=== PATIENT | male | born 1960 | race Caucasian/White ===

== ENCOUNTER → 2024-05-30 06:21 | Day surgery (SDC) | payer BC, SELFPAY | LOC: GI 06:21 | PROVIDERS: ATTENDING PHYSICIAN Specialist | DX: Z12.11 Encounter for screening for malignant neoplasm of colon (principal); Z86.010 Personal history of colon polyps; D17.5 Benign lipomatous neoplasm of intra-abdominal organs; K63.5 Polyp of colon | CPT/HCPCS: 45380; 88305 ==

== ENCOUNTER 2025-10-06 12:51 | Inpatient (IN) | payer MEDICARE, OTHER, SELFPAY ==
[2025-10-06] VITALS (8 sets, daily range): BP systolic 119–157; BP diastolic 67–90; BMI 34.6
[2025-10-06 07:17] LABS: Albumin 4.4 g/dl (3.5-5.0); Carbon Dioxide 23 mmol/L (22-30)
[2025-10-06 07:27] LABS: ALT (SGPT) 52 U/L (0-50); AST (SGOT) 37 U/L (17-59); Alkaline Phosphatase 119 U/L (38-126); Blood Urea Nitrogen 11 mg/dl (9-20); Calcium 9.2 mg/dl (8.4-10.2); Chloride 91 mmol/L (98-107); Glucose 134 mg/dl (70-99); Potassium 4.0 mmol/L (3.5-5.1); Sodium 124 mmol/L (135-145); Total Protein 7.3 g/dl (6.3-8.2); eGFR > 60.00
[2025-10-06 07:28] LABS: COVID-19 Antigen Negative (Negative)
--- NOTE | 2025-10-06 07:34 | ED.GENMED ---
History of Present Illness
General
Chief Complaint: Cold/Flu/URI Symptoms
Time Seen by Provider: 10/06/25 07:34
History of Present Illness
History of Present Illness:
FOCUSED PAST MEDICAL HISTORY
- Prostate cancer, hiatal hernia
REVIEW OF OLD RECORDS
- Patient had colonoscopy in 2023
Note:
CHIEF COMPLAINT(S)
Lethargy, chills, anorexia, rash, and cough.
HISTORY OF PRESENT ILLNESS
The patient is a 65-year-old male who began experiencing symptoms on Sunday. Initially, he reported feeling lethargic with accompanying chills and a mild fever peaking at 100�F. By Sunday, he experienced significant insomnia and total anorexia,
noting, 'I cant eat any food. I havent eaten anything since.' On the day of presentation, the patient developed a rash characterized as 'dots all over' the body, which is non-pruritic and apparently absent the previous day. Notably, he has not had
any recent antibiotic use or new medications. Additionally, the patient reports experiencing cough since yesterday.
PAST MEDICAL AND SURGICAL HISTORY
The patient has had a recent history of cancer with a prostatectomy. The patient denies any metastatic disease.
REVIEW OF SYSTEMS
- Constitutional: Lethargy, fever, chills, anorexia, insomnia.
- Dermatological: Rash described as non-pruritic dots over the body.
- Gastrointestinal: Anorexia; abdomen tenderness reported over the last three days.
- Respiratory: Cough initiated yesterday.
PHYSICAL EXAM
General: Alert, no acute distress.
Skin: Warm, dry, nonpruritic macules with some urticaria primarily noted to the anterior and posterior aspect of the upper torso
Head: Normocephalic, atraumatic.
Neck: Supple, trachea midline.
Eyes, Ears, Nose, Throat: Oral mucosa moist.
Cardiovascular: Normal peripheral perfusion, No edema.
Respiratory: Respirations are non-labored; newly developed cough. Some scattered wheeze but overall fairly clear.
Gastrointestinal: Abdomen nondistended, no significant abdominal tenderness, periumbilical surgical scar along with small soft umbilical hernia
Back: Normal range of motion, Normal alignment.
Musculoskeletal: Normal range of motion, normal strength.
Neurological: Alert and oriented to person, place, time, and situation, No focal neurological deficit observed.
Psychiatric: Cooperative, appropriate mood & affect.
PLAN
- Order blood cultures and a lactic acid level.
- Administer intravenous fluids for hydration.
- Perform a chest X-ray to evaluate the newly developed cough.
- Review and await CBC results.
DIFFERENTIAL DIAGNOSIS
The Differential Diagnosis includes, in no particular order and is not limited to:
1. Viral syndrome
2. Drug reaction or allergy
3. Bacterial infection
4. Influenza despite negative initial test
5. COVID-19 despite negative initial test
6. Community-acquired pneumonia
7. Autoimmune rash
8. Stress or sleep deprivation-related syndromes
9. Malignancy-related symptoms
10. Gastrointestinal infection or discomfort
RADIOLOGY
- Chest x-ray shows left basilar pneumonia
LABS
- COVID and flu negative; CBC normal, sodium 124, normal platelets
SUMMARY OF ENCOUNTER
The patient, a 65-year-old male, presented to the emergency department with lethargy, chills, anorexia, rash, and cough. The lab tests indicated a notably low sodium level of 124 mEq/L, suggesting possible dehydration, potentially linked to
diarrhea. A chest x-ray revealed findings consistent with pneumonia. Given the patients symptoms, particularly the fast heart rate upon arrival, and the evidence of an infection, IV antibiotics were initiated for pneumonia management. Additionally,
IV fluids with saline were administered to address the low sodium levels and dehydration.
DISPOSITION
The decision was made to admit the patient for continued management and observation due to the pneumonia diagnosis, fast heart rate, and low sodium levels.
ASSESSMENT
The patient is experiencing pneumonia with contributing factors including possible dehydration and electrolyte imbalance as indicated by low sodium levels.
EMERGENCY TREATMENTS ADMINISTERED
Intravenous antibiotics were provided to treat pneumonia. Sodium chloride IV fluids were administered to address hyponatremia and dehydration.
PLAN
Continue intravenous antibiotics and saline fluids. Monitor vitals, particularly heart rate and sodium levels. Reassess for improvement of symptoms related to pneumonia and electrolyte balance.
INDEPENDENT REVIEW OF LABS AND INTERPRETATION OF TESTS
My independent review indicates hyponatremia with a sodium level of 124 mEq/L.
My independent interpretation of the chest x-ray shows signs of pneumonia.
MEDICAL DECISION MAKING
-Complexity of Data Reviewed: Chronic conditions affecting care include a history of cancer with a prostatectomy. Differential diagnosis considerations included viral syndrome, bacterial infection, community-acquired pneumonia, and gastrointestinal
infection.
-Data:
Category 1: Chest x-ray was independently interpreted, revealing pneumonia. Sodium levels were reviewed indicating hyponatremia.
-Risk: Consideration of Admission/Observation: Escalation of care including admission/observation was considered given the complexity and risk of the patients presenting complaint, exam findings, and underlying comorbidities. The decision for
admission was made to ensure safe management and close monitoring of pneumonia and hyponatremia.
DIAGNOSIS
Pneumonia (J18.9)
Hyponatremia (E87.1)
UPDATE
- Arrived tachycardic and sodium of 124 in the setting of diarrhea�gave IV fluids; 1+ ketonuria
- Chest x-ray shows pneumonia
- Non-pruritic rash of uncertain etiology; added blood cultures, lactic normal; normal platelets
Phy Exam
Physical Exam
Physical Exam:
See HPI
Sepsis
Sepsis Screening
Sepsis Assessment: Sepsis Ruled Out
Sepsis Screen
Sepsis Screen: Sepsis Ruled Out
Date: 10/06/25
Time: 09:28
Course
Orders/Labs/Results
Orders:
Orders
10/06/25 06:46
COVID-19 Antigen Urgent
Source: Nasal Swab
Influenza A+B Rapid Molecular Urgent
ARMANDO Source: Nasal Swab
Specimen Description:
10/06/25 06:49
Complete Blood Count/With Diff Urgent
Comprehensive Metabolic Panel Urgent
Serum Osmolality Urgent
Comment: ADD ON
10/06/25 07:40
0.9% Sodium Chloride 1000 ml [Nss] 1,000 ml IV BOLUS
CR Chest - 2 Views Urgent
Comment:
Reason For Exam: chills cough
10/06/25 07:41
Add On- LAB Urgent
Tests Added?: serum osm
10/06/25 08:08
Lactic Acid Q4H
Comment: CANCEL 2nd LACTIC ACID IF 1st LACTIC ACID IS LESS THAN 2
Urinalysis Reflex To Culture Urgent
Date Specimen was Collected: 10/06/25
Time Specimen was Collected: 07:42
Urine Microscopic Reflex Cult Urgent
Urine Sodium Urgent
Date Specimen was Collected: 10/06/25
Time Specimen was Collected: 08:00
Blood Culture Q30M
ARMANDO Source: Blood/Venous
Specimen Description:
Blood Culture Q30M
ARMANDO Source: Blood/Venous
Specimen Description:
10/06/25 11:45
Lactic Acid Q4H
Comment: CANCEL 2nd LACTIC ACID IF 1st LACTIC ACID IS LESS THAN 2
Abnormal Lab Results
10/06/25 10/06/25
06:49 08:08
Absolute Lymphs (auto) 1.0 L 10^3/uL
(1.2-3.4)
Absolute Monos (auto) 0.7 H 10^3/uL
(0.1-0.6)
Neutrophils % 76.6 H %
(42.2-75.2)
Lymphocytes % 13.4 L %
(20.5-51.1)
Monocytes % 9.4 H %
(1.7-9.3)
Sodium 124 L mmol/L
(135-145)
Chloride 91 L mmol/L
(98-107)
Glucose 134 H mg/dl
(70-99)
Serum Osmolality 258 L mOsm/kg
(275-300)
ALT 52 H U/L
(0-50)
Urine Ketones 1+ A
(Negative)
Ur Occult Blood Reflex 2+ A
(Negative)
Urine RBC 3-6 A /HPF
(0-2)
Urine Bacteria (Reflex) Few A
(Negative)
Urine Albumin (Reflex) 2+ A
(Neg - Trace)
10/06/25 06:49
10/06/25 06:49
Vital Signs
Initial and Last Documented VS:
Initial Vital Signs
Temp Pulse Resp BP Pulse Ox
37.3 C 102 18 155/83 95
10/06/25 06:39 10/06/25 06:39 10/06/25 06:39 10/06/25 06:39 10/06/25 06:39
Last Documented Vital Signs
Temp Pulse Resp BP Pulse Ox
37.3 C 102 18 155/83 95
10/06/25 06:39 10/06/25 06:39 10/06/25 06:39 10/06/25 06:39 10/06/25 07:37
*Pulse Oximetry
SaO2: 95
Oxygen Mode of Delivery: Room air
Patient hypoxic: no
*Critical Care Note
Total Time (30-74mins, 75-104mins- exclusive of procedures): Not Applicable
ED Attending Note
-
Portions of this chart may have been created with voice recognition software.� Occasional wrong word or��sound alike� substitutions may have occurred due to the inherent limitations of voice recognition software.
Discharge Plan
Departure
Prescriptions:
No Action
Theragen Tablet
1 tab PO DAILY
calcium carbonate [Tums] 200 mg calcium (500 mg) Tablet,Chewable
200 mg PO BIDPRN PRN (Reason: GERD)
omega 2-eoh-bnt-fish oil [Fish Oil] 1,000 (120-180) mg Capsule
1 cap PO DAILY
Visbiome 112.5 billion cell Capsule
1 cap PO DAILY
Referrals:
UNKNOWN - PT DOES,NOT KNOW [Family Provider]
Discharge Date and Time
Print Language: ANGUILLAN
[2025-10-06 08:00] LABS: Hematocrit 40.3 % (39.0-52.0); Hemoglobin 14.2 g/dL (13.0-18.0); Mean Corp Hgb Conc. 35.2 g/dL (33.0-37.0); Mean Corpuscular Volume 82.9 fL (80.0-94.0); Nucleated Red Blood Cells % 0 % (-); Platelet Count 156 10^3/uL (130-400); Red Cell Dist. Width 11.9 % (11.5-14.5)
[2025-10-06] MEDS: NSS 1000 IV ×3 (08:22→17:36)
[2025-10-06 08:32] LABS: Urine Character Clear (Clear)
[2025-10-06] MEDS: ROCEPHIN 1000 MG IV (09:39)
[2025-10-06] MEDS: ZITHROMAX INFUSION 250 IV (10:58)
[2025-10-06 12:02] LABS: Procalcitonin 0.15 ng/ml (0.0-0.25)
--- NOTE | 2025-10-06 12:20 | EDRN ---
Sent TT message to Libby Casillas for further orders for admission and updated the reults of the tests he ordered after assessing the patient at 1015 this morning.
Oral temp is 101.8, awaiting orders
--- NOTE | 2025-10-06 13:56 | HPS.HSE ---
Family Physician
-
Family Physician: NOT KNOW UNKNOWN - PT DOES
Chief Complaint
-
headache sore throat, rash
History of Present Illness
65 male history of diverticulosis prostate cancer s/p prostatectomy who presents with a 3-day history of lethargy poor p.o. intake sore throat headache subjective fevers that have been progressively getting worse. This morning noted a neck rash
that spread centrally downwards to his torso and back region that is slightly elevated, red, nonblanching, without pruritus. Continues to have subjective fevers and not able to tolerate p.o. intake due to sore throat. Declined runny nose ear
popping/fullness sinus pain and pressure. Denied taking OTC medications apart from ASA.
He believes that he is up-to-date with his measles and mom's not sure about develop. Had chickenpox when he was younger.
Has not not been around any children. His son is 26 and his daughter is 29 and currently
In the ED: CBC unremarkable, BMP sodium 124, chloride 91, ALT 52, AST 30, lactate 0.8. IV fluids IV antibiotics with Rocephin and azithromycin.
Medical History
Past Medical History
Past Medical History: Reports Cancer
Past Surgical History: Reports Urological
Social History
Tobacco: Non-smoker
Alcohol: None
Drug: None
Family History
Family History: Not pertinent
Allergies / Home Medications
Allergies reflects when Allergies were last updated in [employer].
Home Medications with original date entered in [employer]
Allergy/Medication List:
Allergies
Allergy/AdvReac Type Severity Reaction Status Date / Time
doxycycline Allergy Nausea / Verified 10/06/25 06:42
Vomiting
Home Medications
Lactobac no.2-Bifidobac no.1-S. thermo 112.5 billion cell capsule (Visbiome) 1 cap PO DAILY 10/06/25
calcium carbonate (Tums) 200 mg PO BIDPRN PRN GERD 10/06/25
omega 9-rcu-yfb-fish oil 1,000 mg (120 mg-180 mg) capsule (Fish Oil) 1 cap PO DAILY Supplement 10/06/25
therapeutic multivitamin 1 tab PO DAILY Supplement 10/06/25
Review of Systems
-
A 12 point ROS was completed and negative except as noted: Yes
Physical Exam
Vital Signs
Vital Signs
Temp Pulse Resp BP Pulse Ox
101.8 F H 97 18 157/73 95
10/06/25 12:11 10/06/25 12:11 10/06/25 12:11 10/06/25 11:10 10/06/25 11:30
Physical Exam
General: No Apparent Distress and Comfortable
HEENT: NormoCephalic, Anicteric and Other (no koplik spots notes, pharnygeal erythema notes)
Respiratory: Clear
Cardiac: S1/S2 and Regular Rhythm
GI: Soft, Non Tender, Non Distended and Normal Bowel Sounds
Genito-urinary: Deferred by me
Musculoskeletal: No Clubbing and No Cyanosis
Skin: Other (Macular papular rash that is not warm, nonblanchable that is across his chest and upper abdomen along bilateral arms and back that spread from upper back to lower back)
Neuro: Awake and AO x 3
Psych: Calm
Laboratory Results
-
10/06/25 06:49
10/06/25 06:49
Laboratory Results
Lactic Acid 0.8 mmol/L (0.7-2.0) 10/06/25 08:08
Total Bilirubin 1.3 mg/dl (0.2-1.3) 10/06/25 06:49
AST 37 U/L (17-59) 10/06/25 06:49
ALT 52 U/L (0-50) H 10/06/25 06:49
Alkaline Phosphatase 119 U/L (38-126) 10/06/25 06:49
Impression/Plan
-
Acute viral syndrome versus left lower lobe pneumonia. However clinically less likely bacterial pneumonia as no cough and no rales/rhonchi on exam
Supportive care
Monitor off of IV antibiotics
Procalcitonin
Urinary antigen Legionella/strep
Sputum culture
RSV
COVID flu negative
Antipyretics as needed
No cough/congestion therefore no indication for antitussives/mucolytic's at this time
No indication for steroids
Hyponatremia/hypovolemia
IV fluids
Repeat BMP in the a.m.
Due to the hyponatremia hypovolemia requiring IV fluids that is secondary to poor p.o. intake and unable to tolerate p.o. intake due to lack of appetite will admit as inpatient
[2025-10-06] MEDS: TYLENOL 650 MG PO ×3 (14:04→22:55)
[2025-10-06] MEDS: BENADRYL 50 MG PO (14:05)
--- NOTE | 2025-10-06 14:39 | CM ---
Addendum entered by Quoc Burks 10/06/25 14:43:
[facility] after prostate surgery
outpatient PT after shoulder surgery
Original Note:
Chart reviewed and spoke with patient at ED bedside
Lives with in [address] via garage
Independent with ADLs and ambulation
no DME
Drives
PCP [facility] [address]
[facility] in [place]
hx of [facility] after shoulder surgery
no hx of SNF
DCP is to go home with no needs
can drive him home
CM will continue to follow up for dcp needs
--- NOTE | 2025-10-06 15:21 | PTCARENOTE ---
Received pt from ED via stretcher. Pt AAOX3. Pox: 94% RA. IVFs infusing without difficulty. Pt c/o headache 05/31. See MAR. Call [facility]ante within reach. Plan of care ongoing.
[2025-10-06] MEDS: LOVENOX 40 MG SC (17:36)
[2025-10-07] MEDS: NSS 1000 IV ×2 (01:40→09:23)
[2025-10-07 07:14] LABS: Hematocrit 37.9 % (39.0-52.0); Hemoglobin 13.5 g/dL (13.0-18.0); Mean Corp Hgb Conc. 35.6 g/dL (33.0-37.0); Mean Corpuscular Volume 83.1 fL (80.0-94.0); Platelet Count 138 10^3/uL (130-400); Red Cell Dist. Width 11.9 % (11.5-14.5)
[2025-10-07 07:18] LABS: Blood Urea Nitrogen 9 mg/dl (9-20); Calcium 8.2 mg/dl (8.4-10.2); Carbon Dioxide 24 mmol/L (22-30); Chloride 97 mmol/L (98-107); Estimated Creatinine Clearance 117 ml/min; Glucose 112 mg/dl (70-99); Potassium 3.7 mmol/L (3.5-5.1); Sodium 128 mmol/L (135-145); eGFR > 60.00
[2025-10-07] MEDS: THERAGRAN 1 TABLET PO (07:53)
[2025-10-07] MEDS: VISBIOME 1 CAP PO (07:53)
[2025-10-07] MEDS: TYLENOL 650 MG PO ×2 (07:55→16:14)
[2025-10-07 08:00] VITALS: BP 127/73
--- NOTE | 2025-10-07 12:37 | W.PN.HOSP.TC ---
Today's Communication/Plan
-
Assessment / Plan
Assessment / Plan
General: No Apparent Distress and Comfortable
HEENT: NormoCephalic, Anicteric and Other (no koplik spots notes, pharnygeal erythema notes)
Respiratory: Clear
Cardiac: S1/S2 and Regular Rhythm
GI: Soft, Non Tender, Non Distended and Normal Bowel Sounds
Genito-urinary: Deferred by me
Musculoskeletal: No Clubbing and No Cyanosis
Skin: Other (Macular papular rash that is not warm, nonblanchable that is across his chest and upper abdomen along bilateral arms and back that spread from upper back to lower back)
Neuro: Awake and AO x 3
Psych: Calm
Acute viral syndrome versus left lower lobe pneumonia. However clinically less likely bacterial pneumonia as no cough and no rales/rhonchi on exam
Supportive care
Monitor off of IV antibiotics
Procalcitonin
Urinary antigen Legionella/strep
Sputum culture
COVID flu rsv negative
Antipyretics as needed
No cough/congestion therefore no indication for antitussives/mucolytic's at this time
No indication for steroids
Rash, unclear as to etiology
?acute viral syndrome
send for measles titers
consult id
check ferritin, if high ?adult onset stills
Hyponatremia/hypovolemia
IV fluids
Repeat BMP in the a.m.
Anticipated Discharge: > 48 hours
Subjective/Interval History
-
Date of Service: October 07, 2025
Seen and examined. No new complaints. No acute overnight events.
Rash is evolving more confluent on the chest, extending into the forearms and hands
Noted some dermatographia
Objective Data
-
Labs:
Laboratory Results
10/07/25
06:30
WBC 5.8
Hgb 13.5
Hct 37.9 L
Plt Count 138
Sodium 128 L
Potassium 3.7
Chloride 97 L
Carbon Dioxide 24
BUN 9
Creatinine 0.8
Glucose 112 H
Calcium 8.2 L
Vital Signs:
Vital Signs
Temp Pulse Resp BP Pulse Ox
99.4 F 90 18 127/73 97
10/07/25 12:25 10/07/25 08:00 10/07/25 08:00 10/07/25 08:00 10/07/25 08:00
I&O
10/06/25 10/07/25 10/08/25
06:59 06:59 06:59
Intake Total 2355 / 2355
Balance 2355 / 2355
--- NOTE | 2025-10-07 14:37 | CON.ID ---
Consultation
-
Date/Time Consultation Requested: October 07, 2025 10:50
Date/Time Consultation Performed: October 07, 2025 11:00
Requesting Provider: Dr. Agustín Casillas
Performing Provider: Dr. Ofelia Duncan
Reason for Consultation: URI with rash
Chief Complaint / Past History
Chief Complaint
Flulike symptoms
History of Present Illness
65-year-old male with remote history of prostate cancer status post resection who presented to the ER October 06 with fever. He reports feeling unwell starting Sunday, October 03 with bodyaches, malaise, headache, dry cough, fevers, chills up
to 100.7. Neck stiffness or photophobia. Positive nonspecific joint pains. No sinus congestion. No rhinorrhea. No sore throat. No chest pain. Positive nausea without vomiting. No abdominal pain or diarrhea. No dysuria, frequency, urgency,
flank pain. He did not improve and therefore came to the ER. In the ER temperature max 101.8. Sodium 128. UA unremarkable. Chest x-ray left basilar airspace disease. Procalcitonin 0.17. He did not notice a rash until in the ER when he changed
into hospital gown, he noted a rash that started on the right side of his neck which then extended down to his chest and back. He states the rash initially were tiny red dots size of a pinhole then expanded. Rash is not itchy. He reports
receiving all his childhood vaccines. He had chickenpox when he was young. No ill contacts. He lives with his who is well. His daughter visits him frequently. Daughter has recurrent head cold during her . He has not
traveled. No pets. No new detergents or soaps. He is feeling overall better today except the rash appears to be progressing. No rash below the abdomen.
Past History
Additional Past Medical History:
Prostate cancer status post prostatectomy
Allergy History:
doxycycline Allergy (Verified 10/06/25 06:42)
Nausea / Vomiting
Medications Reviewed: Yes
Current Antibiotics:
s/p ceftriaxone and azithromycin in ED
Social History
Tobacco: Non-Smoker
Alcohol: None
Drug: None
Personal:
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
Family History
Family History: Not Pertinent
Review of Systems
Review of Systems
General: Fever, Chills and Change in Appetite
HEENT: Headache; Negative Stiff Neck, Sinus Problems or Pharyngitis
Cardiovascular: Negative Chest Pain or Dyspnea
Respiratory: Cough; Negative Dyspnea or Sputum Production
Gasteroenterology: Negative Vomiting or Diarrhea
Genital / Urological: Negative Dysuria or Flank Pain
Endocrine: Weakness
Skin / Hair / Nails: Rash
Neurological: Negative Dizziness
All systems: All other systems were reviewed and were negative
Vital Signs
Temp Pulse Resp BP Pulse Ox
99.4 F 90 18 127/73 97
10/07/25 12:25 10/07/25 08:00 10/07/25 08:00 10/07/25 08:00 10/07/25 08:00
Selected Entries
10/06/25
12:11 10/06/25
22:53
Temp 101.8 F H 100.7 F H
Physical Exam
Physical Exam
Constitutional: No Acute Distress and Comfortable
Head: Other (No sinus tenderness)
Eyes: Other (No conjunctivitis); Negative No Conjunctival Hemorrhage or Sclera Anicteric
Pharynx: Benign
Oral: No Thrush and No Ulcers
Cardiovascular: Regular Rate and S1/S2
Pulmonary: Clear
Gastrointestinal: Soft, Non Tender, Non Distended and Normal Bowel Sounds
Genito-Urinary: Negative CVA Tenderness
Extremities: Negative Edema
Musculoskeletal: Negative Joint Swelling, Joint Effusion or Spinal Tenderness
Skin: Rash (Macular blanchable pink rash on entire posterior torso, neck/chest (confluent), abdomen, bilateral arms. Square shape with red border rash x 2 from EKG electrode pads. None on palms and soles. )
Neurological: AO x 3; Negative Meningeal Signs
Lab / Diagnostic Study Results
10/07/25 06:30
10/07/25 06:30
Abs Immat Gran (auto) 0.0 10^3/uL (0-0.05) 10/06/25 06:49
Absolute Neuts (auto) 5.9 10^3/uL (1.4-6.5) 10/06/25 06:49
Absolute Lymphs (auto) 1.0 10^3/uL (1.2-3.4) L 10/06/25 06:49
Absolute Monos (auto) 0.7 10^3/uL (0.1-0.6) H 10/06/25 06:49
Absolute Basos (auto) 0.0 10^3/uL (0-0.2) 10/06/25 06:49
Immature Gran % 0.3 % (0-0.5) 10/06/25 06:49
Neutrophils % 76.6 % (42.2-75.2) H 10/06/25 06:49
Lymphocytes % 13.4 % (20.5-51.1) L 10/06/25 06:49
Monocytes % 9.4 % (1.7-9.3) H 10/06/25 06:49
Eosinophils % 0.0 % (0-6) 10/06/25 06:49
Basophils % 0.3 % (0-2) 10/06/25 06:49
Lactic Acid Cancelled 10/06/25 11:45
Procalcitonin 0.15 ng/ml (0.0-0.25) 10/06/25 10:25
Ur Squamous Epith Cells 3-5 /LPF (Few) 10/06/25 08:08
Microbiology Results
Micro:
10/07/25 12:56 Respiratory Culture - Pending
Res Misc Gram Stain - Pending
10/07/25 12:27 Influenza Type A (PCR) - Pending
Nasalpharynx Influenza Type A (H1) (PCR) - Pending
Influenza Type A (H3) (PCR) - Pending
Influenza Type B (PCR) - Pending
Resp Syncytial Virus Type A (PCR) - Pending
Resp Syncytial Virus Type B (PCR) - Pending
Adenovirus DNA (PCR) - Pending
Human Metapneumovirus (PCR) - Pending
Parainfluenza Virus Type 1 (PCR) - Pending
Parainfluenza Virus Type 2 (PCR) - Pending
Parainfluenza Virus Type 3 (PCR) - Pending
Parainfluenza Virus Type 4 - Pending
Rhinovirus (PCR) - Pending
10/06/25 08:08 Blood Culture - Preliminary
Blood/Venous No Growth in 24 hours- Final report to follow
10/06/25 08:08 Blood Culture - Preliminary
Blood/Venous No Growth in 24 hours- Final report to follow
10/06/25 10:25 Legionella Urinary Antigen - Final
Urine Negative for Legionella pneumophila Serogroup 1 antigen.
A negative result does not rule out the possiblity of
Legionella infection due to other serogroups or species of
Legionella. Clinical correlation is recommended.
Streptococcus pneumoniae Antigen (M - Final
Negative for Streptococcus pneumoniae antigen.
A negative result does not exclude infection with
Streptococcus pneumoniae. Clinical correlation is
recommended.
10/06/25 11:02 Respiratory Syncytial Virus Ag - Final
Nasal Swab Negative for Respiratory Syncytial Virus.
A false negative result may be obtained with a specimen
collected early in the acute phase. If symptoms persist, a
new specimen should be tested.
10/06/25 06:46 Influenza Types A & B (SHAGGY) - Final
Nasal Swab Negative for Influenza A & B, NAAT
Negative results must be combined with clinical observations
and patient history.
Nucleic Acid Amplification test (NAAT)performed on the
[employer] platform.
10/06/25 CXR: Patchy left basilar airspace disease.
Assessment / Plan
# Fever
# STEPHENSON/myalgia/joint pain/dry cough
# Macular rash
# Left base patchy airspace opacity on CXR
- Procalcitonin neg
-blood cx's neg to date
-UA neg
- COVID/Influenza/RSV negative.
- Suspect viral syndrome vs possible adult Still's
- Low suspicion for measles based on history and exam.
- Check SLATE CUTTER swab for respiratory viral panel
- Check ferritin.
- Trend temps.
- Follow clinically
Care Review
Plan reviewed with: Nurse (Mariam Willis) and Physician (Dr. Vadim Casillas)
[2025-10-07 15:18] LABS: Ferritin 586.0 ng/ml (17.9-464.0)
[2025-10-07 16:15] VITALS: BP 119/69
[2025-10-07] MEDS: LOVENOX 40 MG SC (18:25)
[2025-10-07] MEDS: OCEAN, SALINE MIST 2 SPRAYS NASAL (23:10)
[2025-10-07] MEDS: ROBITUSSIN AC 5 ML PO (23:11)
[2025-10-07 23:20] VITALS: BP 135/70
[2025-10-08] MEDS: ROBITUSSIN AC 5 ML PO (07:09)
[2025-10-08 07:55] VITALS: BP 130/74
[2025-10-08] MEDS: VISBIOME 1 CAP PO (08:21)
[2025-10-08] MEDS: THERAGRAN 1 TABLET PO (08:21)
[2025-10-08] MEDS: TYLENOL 650 MG PO (08:21)
[2025-10-08 08:22] LABS: Blood Urea Nitrogen 7 mg/dl (9-20); Calcium 8.2 mg/dl (8.4-10.2); Carbon Dioxide 26 mmol/L (22-30); Chloride 98 mmol/L (98-107); Estimated Creatinine Clearance > 125 ml/min; Glucose 125 mg/dl (70-99); Hematocrit 35.1 % (39.0-52.0); Hemoglobin 12.5 g/dL (13.0-18.0); Mean Corp Hgb Conc. 35.6 g/dL (33.0-37.0); Mean Corpuscular Volume 82.8 fL (80.0-94.0); Platelet Count 141 10^3/uL (130-400); Potassium 3.3 mmol/L (3.5-5.1); Red Cell Dist. Width 12.0 % (11.5-14.5); Sodium 130 mmol/L (135-145); eGFR > 60.00
[2025-10-08] MEDS: NSS 1000 IV (08:24)
--- NOTE | 2025-10-08 09:38 | W.PN.ID1 ---
Date of Service
Date of Service: October 08, 2025
Today's Communication
Continue supportive care.
Can dc home.
Assessment / Plan
# Adenovirus pneumonia
# Fever
# Macular rash, due to adenovirus, improving
# STEPHENSON/myalgia/joint pain/dry cough, improving
- Procalcitonin neg
-blood cx's neg to date
-UA neg
- COVID/Influenza/RSV negative.
- Resp viral panel + ADENOVIRUS
- Supportive care.
- Droplet and contact precaution
- Can dc home.
Recommend avoid visitors at home until systemic illness/symptoms resolve.
Chief Complaint
-: Fever and Other (Rash)
Subjective / Review of Systems
Now has postnasal drip. + nonproductive cough. Overall does feel better.
Rash is improving.
Vital Signs / Physical Exam
Vital Signs
Vital Signs
Temp Pulse Resp BP Pulse Ox
98.0 F 76 16 130/74 95
10/08/25 07:55 10/08/25 07:55 10/08/25 07:55 10/08/25 07:55 10/08/25 07:55
Selected Entries
10/07/25
16:15 10/07/25
19:30
Temp 103.0 F H 100.4 F H
Physical Exam
Constitutional: No Acute Distress, Comfortable and Non-toxic
Head: Other (No sinus tenderness)
Eyes: No Conjunctival Hemorrhage and Sclera Anicteric; Negative Erythema
Cardiovascular: Regular Rate and S1/S2
Pulmonary: Clear
Gastrointestinal: Soft, Non Tender, Non Distended and Normal Bowel Sounds
Extremities: Negative Edema
Skin: Rash (Morbilliform rash on chest, abd, posterior torso decrease. BUE rash resolved. )
Neurological: AO x 3
Objective Data
Lab Data
Lab Results
10/08/25 07:40
10/08/25 07:40
Estimated Creat Clear > 125 ml/min 10/08/25 07:40
Lactic Acid Cancelled 10/06/25 11:45
Total Bilirubin 1.3 mg/dl (0.2-1.3) 10/06/25 06:49
AST 37 U/L (17-59) 10/06/25 06:49
ALT 52 U/L (0-50) H 10/06/25 06:49
Alkaline Phosphatase 119 U/L (38-126) 10/06/25 06:49
Most recent labs reviewed.
Micro Results:
10/07/25 12:56 Respiratory Culture - Preliminary
Res Misc Usual Respiratory Jada
Gram Stain - Preliminary
10/06/25 08:08 Blood Culture - Preliminary
Blood/Venous No Growth in 48 hours- Final report to follow
10/06/25 08:08 Blood Culture - Preliminary
Blood/Venous No Growth in 48 hours- Final report to follow
10/07/25 12:27 Influenza Type A (PCR) - Final
Nasalpharynx Not Detected
Influenza Type A (H1) (PCR) - Final
Not Detected
Influenza Type A (H3) (PCR) - Final
Not Detected
Influenza Type B (PCR) - Final
Not Detected
Resp Syncytial Virus Type A (PCR) - Final
Not Detected
Resp Syncytial Virus Type B (PCR) - Final
Not Detected
Adenovirus DNA (PCR) - Final
DETECTED
Human Metapneumovirus (PCR) - Final
Not Detected
Parainfluenza Virus Type 1 (PCR) - Final
Not Detected
Parainfluenza Virus Type 2 (PCR) - Final
Not Detected
Parainfluenza Virus Type 3 (PCR) - Final
Not Detected
Parainfluenza Virus Type 4 - Final
Not Detected
Rhinovirus (PCR) - Final
Not Detected
10/06/25 10:25 Legionella Urinary Antigen - Final
Urine Negative for Legionella pneumophila Serogroup 1 antigen.
A negative result does not rule out the possiblity of
Legionella infection due to other serogroups or species of
Legionella. Clinical correlation is recommended.
Streptococcus pneumoniae Antigen (M - Final
Negative for Streptococcus pneumoniae antigen.
A negative result does not exclude infection with
Streptococcus pneumoniae. Clinical correlation is
recommended.
10/06/25 11:02 Respiratory Syncytial Virus Ag - Final
Nasal Swab Negative for Respiratory Syncytial Virus.
A false negative result may be obtained with a specimen
collected early in the acute phase. If symptoms persist, a
new specimen should be tested.
10/06/25 06:46 Influenza Types A & B (SHAGGY) - Final
Nasal Swab Negative for Influenza A & B, NAAT
Negative results must be combined with clinical observations
and patient history.
Nucleic Acid Amplification test (NAAT)performed on the
[employer] platform.
10/06/25 CXR: Patchy left basilar airspace disease.
Care Review
Plan reviewed with: Physician (Dr. Libby Casillas)
--- NOTE | 2025-10-08 10:36 | W.DCSUMMARY ---
Discharge Summary
Discharge Data
Date of Admission: 10/06/25
Date of Discharge: 10/08/25
-
Pending Results: No
Hospital Course
65 male history of diverticulosis prostate cancer s/p prostatectomy
Presented with fevers headache muscle aches joint pain dry cough and a macular rash. Was admitted for low sodium in the low 120s which was likely suspected due to poor p.o. intake/poor appetite. Suspect symptomatology and lab findings were
secondary to acute viral syndrome. Infectious diseases evaluated as COVID flu RSV were negative. Unfortunately was found to be adenovirus positive. Will need to continue supportive care. Will need to continue to isolate until all symptoms
resolve.
CXR
IMPRESSION:
Left basilar pneumonia.
Seen and examined the day of discharge which was 10/08/2025. No new complaints. No acute overnight events.
NAD
Scleral Anicteric
MMM
No JVD
CTABL
RRR, S1/S2
Soft, NT, ND, BS+
Warm, Dry
Rash improving. Maculopapular rash that was seen on hand in forearms are not resolving. Confluent maculopapular rash on chest and back is receding and improving.
AAOx3
Calm
More than 30 minutes spent in discharge including
Final examination of the patient
Summarizing hospital stay
Instructions for continuing care to all relevant caregivers
Preparation of discharge records, prescriptions, and referral forms
Total time spent (in minutes): 33mins
Discharge Plan
-
Patient Disposition: Home (Routine Discharge)
Discharge Diagnosis/Procedures: Acute viral syndrome
Adenovirus
Hyponatremia
Hypokalemia
Macular rash
Condition: Good
Diet: As tolerated
Activity: As tolerated
Activity Restrictions/Additional Instructions:
Presented with fevers headache muscle aches joint pain dry cough and a macular rash. Was admitted for low sodium in the low 120s which was likely suspected due to poor p.o. intake/poor appetite. Suspect symptomatology and lab findings were
secondary to acute viral syndrome. Infectious diseases evaluated as COVID flu RSV were negative. Unfortunately was found to be adenovirus positive. Will need to continue supportive care. Will need to continue to isolate until all symptoms
resolve.
CXR
IMPRESSION:
Left basilar pneumonia.
Referrals:
UNKNOWN - PT DOES,NOT KNOW [Family Provider]
Prescriptions:
New
Nasal Mist 0.9 % aerosol,spray
2 spray intranasal Q4H PRN (Reason: nasal congestion) Qty: 126 0RF
dextromethorphan-guaifenesin [Robitussin Cough-Chest Bony DM] 5-100 mg/5 mL liquid
10 ml PO Q6H PRN (Reason: cough and congestion) Qty: 1000 0RF
Continued
therapeutic multivitamin Tablet
1 tab PO DAILY
calcium carbonate [Tums] 200 mg calcium (500 mg) Tablet,Chewable
200 mg PO BIDPRN PRN (Reason: GERD)
omega [id number] oil [Fish Oil] 1,000 (120-180) mg Capsule
1 cap PO DAILY
Visbiome 112.5 billion cell Capsule
1 cap PO DAILY
Discharge Orders:
Discharge Patient (As Directed); Ordered 10/08/25
Ordered By: Agustín Casillas
Discharge Date and Time
Print Language: SETSWANA
[2025-10-08] MEDS: KCL 40 MEQ PO (11:51)
--- NOTE | 2025-10-08 12:48 | CM ---
CM reviewed chart, patient seen bedside.
Patient for d/c today, confirms transport home.
IMM verbally reviewed, provided with copy, placed in chart.
CM will continue to follow.
Plan; home no needs.
[2025-10-08 13:10] VITALS: BP 125/68
== END 2025-10-08 12:30 | disposition home or self-care (01) | DRG 194 ==
LOC: 1 ACUTE 12:51
PROVIDERS: Emergency Medicine; ADMITTING PHYSICIAN Hospitalist; CONSULT PHYSICIAN Internal Medicine Infectious Disease; EMERGENCY PHYSICIAN Emergency Medicine
DX: J18.9 Pneumonia, unspecified organism (principal); E87.1 Hypo-osmolality and hyponatremia; Z11.52 Encounter for screening for COVID-19; J06.9 Acute upper respiratory infection, unspecified; R21 Rash and other nonspecific skin eruption; J12.0 Adenoviral pneumonia
CPT/HCPCS: 71046; 80048; 80053; 81003; 81015; 82728; 83605; 83930; 84145; 84300; 85025; 85027; 86765; 87040; 87070; 87205; 87449; 87502; 87633; 87807; 87811; 87899; 96361; 96365; 96375; 99285